=== PATIENT | female | born 1965 | race Two or more races ===

== ENCOUNTER 2024-03-11 10:03 | Day surgery (SDC) | payer OTHER ==
[~2024-03-11] VITALS: Ht 162.6 cm; Wt 104.3 kg
[~2024-03-11 10:03] MED LIST: ASPI-543 PO; ATEN-60 PO; BENA5TAB38 PO; PRAV20TA3 PO
[2024-03-11] MEDS ORDERED: PROPOFOL 10 MG/ML 20 ML IV ONE ×2 (11:16→11:32)
[2024-03-11] MEDS ORDERED: LIDOCAINE 1% INJ PF 5ML AMP ONE (11:16)
[2024-03-11 11:35] VITALS: PULSE 63; RESP 17; TEMP 97.8; O2SAT 98
--- NOTE | 2024-03-11 11:37 | DVHHP2 ---
GI H&P Pre-Op Assessment Date: 03/11/24 Chief complaint: colon cancer screening HPI: per clinic note Past medical history: per clinic note Past surgical history: per clinic note Family history: per clinic note Physical exam: General: NAD, AAOX3 HEENT: PERRL, no scleral icterus, normal hearing, gums without lesions or bleeding, oropharynx clear without erythema or exudate. Neck: Supple without enlargement of the thyroid, or lymphadenopathy. Chest: Normal size and shape, no tenderness, lung hager clear to auscultation and percussion, nonlabored breathing. Heart: RRR, no murmur Abdomen: non-distended, no tenderness to palpation, +BS, no hepatosplenomegaly Extremities: no edema Neurological: CN II-XII intact, sensation intact in all extremities, 5+ strength in all extremities Skin: No rashes, No jaundice Assessment: - colon cancer screening Plan: - Colonoscopy - Risks (bleeding, infection, perforation, reaction to sedation medications and cardiopulmonary arrest) and benefit of the procedure were explained to patient. Patient agrees to undergo the procedure. MIKE BETANCOURT MD Mar 11, 2024 11:37
[2024-03-11] MEDS ORDERED: ONDANSETRON HCL 4 MG/2 ML VIAL IV ONE (11:40)
--- NOTE | 2024-03-11 11:42 | DVHOP2 ---
Operative Report DATE OF OPERATION: 03/11/24 PROCEDURE: Colonoscopy. PREOPERATIVE INDICATION: The patient is a 58 -year-old female undergoing colonoscopy for colon cancer screening. POSTOPERATIVE DIAGNOSES: 1. 2 mm transverse colon polyp removed with biopsy forceps. 2. 2 mm descending colon polyp removed with biopsy forceps. 3. Internal hemorrhoids. PROCEDURE PERFORMED BY: Pedro France M.D. SCOPE: Olympus videocolonoscope. ASA CLASS: 3 PREOPERATIVE MEDICATIONS: MAC with Toño MOULTON PROCEDURE IN DETAIL: After obtaining an informed consent, the patient was placed on left lateral decubitus position. She was then sedated with the above medications. A rectal examination was performed that was normal. The colon oscope was then passed through the anus into the rectosigmoid and through the descending, transverse, and ascending colon up to the cecum with visualization of the appendiceal orifice, base of the cecum and the ileocecal valve. A 2 mm transverse colon polyp removed with biopsy forceps. A 2 mm descending colon polyp removed with biopsy forceps. There were internal hemorrhoids. The c olonoscope was then withdrawn. The patient tolerated the procedure well without difficulty. WITHDRAWAL TIME: 6 minutes QUALITY OF THE PREP: Naylor Bowel Prep score: 6 COMPLICATIONS : None SPECIMENS: Colon polyps DISPOSITION: D/C to home PLAN: 1. Repeat colonoscopy base on biopsy result PEDRO FRANCE MD Mar 11, 2024 11:42
--- NOTE | 2024-03-11 11:42 | DVHDS2 ---
Physician Discharge Progress N Final Diagnosis: colon polyps, internal hemorrhoids Operations or Procedures: Operations or Procedures colonoscopy with biopsy polypectomy Condition on Discharge: Good Disposition: Home Discharge Instructions: Diet: Regular Activity: No Restrictions, As Tolerated Medications: resume previous home medications Follow Up Care: Discharge Statement: "Patient was advised to return to the ER or call 911 if any headaches, dizziness, shortness of breath, chest pain, abdominal pain, bleeding, fevers, or worsening of medical condition. Patient was counseled about treatment plan, medications, possible side effects, patientverbalized understanding. All questions were answered to the best of my ability. This discharge took greater then 30 minutes in planning, reviewing documentation, counseling the patient, and discussing with other team members." MIKE BETANCOURT MD Mar 11, 2024 11:42
[2024-03-11] MEDS ORDERED: ONDANSETRON HCL 4 MG/2 ML VIAL ONE (11:47)
[2024-03-11 12:10] VITALS: BP 156/91; PULSE 57; RESP 14; O2SAT 96
== END 2024-03-11 12:25 | disposition home or self-care (01) ==
LOC: GI 10:03
PROVIDERS: ATTEND Internal Medicine Gastroenterology
DX: Z12.11 Encounter for screening for malignant neoplasm of colon (principal); D12.4 Benign neoplasm of descending colon; K63.5 Polyp of colon; K64.8 Other hemorrhoids; I10 Essential (primary) hypertension; E78.00 Pure hypercholesterolemia, unspecified; E66.01 Morbid (severe) obesity due to excess calories; Z68.39 Body mass index [BMI] 39.0-39.9, adult; Z79.82 Long term (current) use of aspirin; Z79.899 Other long term (current) drug therapy; Z90.722 Acquired absence of ovaries, bilateral; Z90.710 Acquired absence of both cervix and uterus; Z90.79 Acquired absence of other genital organ(s); Z87.891 Personal history of nicotine dependence
CPT/HCPCS: 45380; 88305; J2405; J2704; J7030